=== PATIENT | male | born 1980 | race Caucasian/White ===

== ENCOUNTER 2017-09-12 11:51 | Emergency (ER) | payer BC ==
--- NOTE | 2017-09-12 11:58 | PDOC ---
History of Present Illness - General Chief Complaint: Hemoptysis Stated Complaint: BLOOD IN SALIVA Time Seen by Provider: 09/12/17 11:52 - History of Present Illness Initial Comments: 09/12/17 12:39 Chief complaint: Blood in saliva History of present illness: Patient noted small amount of brown blood in his saliva this morning. He denies coughing or vomiting. Denies throat irritation, irritation or lesions in his oropharynx, lips. This has occurred several times in the past, including once yesterday, and a few times in the last several months. He admits chronic ALLERGY symptoms with nasal congestion, but no fever, cough, chest pain, shortness of breath, abdominal pain. Review of systems: As above otherwise negative Past medical history: Anxiety disorder, multiple orthopedic surgeries. Social history: Former smoker, quit smoking 6 months ago. No tobacco presently, no alcohol or drugs. Fully active without disability Family history: Reviewed and noncontributory including early coronary artery disease, metabolic diseases including diabetes, and cancer Physical exam: Alert and oriented well-developed well-nourished no acute distress cheerful and cooperative Afebrile, vital signs normal HEENT clear. Specifically, there are no lesions noted in the nose or oropharynx , tongue, or lips. The gingiva are healthy. The dentition is healthy. There is mild nasal congestion with no discharge. The sputum is presently clear Neck supple without bruit mass or nodes Chest clear full breath sounds throughout bilaterally no wheezes rales or rhonchi CV S1 and S2 normal without murmur rub or gallop pulses full and symmetric no JVD or edema Abdomen soft nontender without mass or organomegaly. Bowel sounds normal. Nondistended Extremities no CCE Skin clear, no rash, adequate turgor and wet mucous membranes Impression: Due to the mild nature symptoms, as well as the intermittent nature , and the fact that they are not worsening, this is likely due to localized irritation from seasonal ALLERGIES and/or mild URI Plan: Reassure. Therefore to ENT specialist for fiberoptic endoscopy if his symptoms persist or worsen. Past History - Past Medical History Allergies/Adverse Reactions: Allergies Allergy/AdvReac Type Severity Reaction Status Date / Time peanut Allergy Unknown Verified 09/12/17 11:53 Home Medications: Ambulatory Orders Duloxetine HCl [Cymbalta] 60 mg PO DAILY 09/12/17 Loratadine [Claritin] 10 mg PO PRN PRN 09/12/17 Multivit-Minerals/FA/Lycopene [Men's Daily Formula Tablet] 1 each PO DAILY 09/12 *DC/Admit/Observation/Transfer Diagnosis at time of Disposition: Allergic rhinitis Qualifiers: Chronicity: chronic Allergic rhinitis trigger: unspecified Allergic rhinitis seasonality: non-seasonal Qualified Code(s): J30.89 - Other allergic rhinitis - Discharge Dispostion Disposition: HOME Condition at time of disposition: Stable Admit: No - Referrals Referrals: Surjit Medina MD [Staff Physician] - - Patient Instructions Printed Discharge Instructions: DI for Allergic Rhinitis Additional Instructions: Due to the small amount of blood in saliva, the intermittent nature of your symptoms, and the fact that they are not worsening, this is likely due to to irritation of the nasal or throat passages from ALLERGY symptoms. However, although it is highly unlikely, there could be a growth in these areas that is not visible on normal exam. To be absolutely certain, you would need to consult an ENT specialist and undergo fiberoptic endoscopy to visualize the back of the nose and air tube below your throat. You can discuss this with your primary care physician, , on you next visit. Alternately, you can consult the ENT specialist to whom you are recommended today. In the meantime, keep your room cool, avoid dry hot air, and moisturize her nose with saline drops. Consider using humidifier.
[2017-09-12 12:05] VITALS: BP 143/94; PULSE 120; TEMP 99; BMI 71.1
== END 2017-09-12 12:25 | disposition home or self-care (01) ==
LOC: FER 11:51
DX: J30.89 Other allergic rhinitis (principal); Z87.891 Personal history of nicotine dependence; F41.9 Anxiety disorder, unspecified
CPT/HCPCS: 99282-25